=== PATIENT | male | born 1950 | race Caucasian/White ===

== ENCOUNTER → 2022-05-24 15:17 | Outpatient (BNVA) | payer MEDICARE, SELFPAY | PROVIDERS: PCP Family Medicine; Visit Provider Urology | DX: N20.0 Calculus of kidney (principal); N40.1 Benign prostatic hyperplasia with lower urinary tract symptoms; N13.8 Other obstructive and reflux uropathy; N32.0 Bladder-neck obstruction; R35.1 Nocturia | CPT/HCPCS: 99212 ==

== ENCOUNTER → 2022-08-02 15:30 | Outpatient (BNVA) | payer MEDICARE, SELFPAY | PROVIDERS: PCP Family Medicine; Visit Provider Urology | DX: N32.0 Bladder-neck obstruction (principal); N20.0 Calculus of kidney | CPT/HCPCS: Q3014 ==

== ENCOUNTER 2023-07-11 15:28 | Outpatient (AMB) | payer MEDICARE, SELFPAY ==
--- NOTE | 2023-07-11 15:34 | A.OFFVIS_ITS ---
Intake Intake Visit Reasons: 6m/PVR Intake Note: Patient is Present for Follow Up PVR Urology Medication: Tamsulosin, Doxazosin Antibiotic Allergies:None Blood Thinners:None [facility]: [facility] would like to have a hand prescription where he can use [facility] for better Jacob PVR: 0 HPI HPI Comments History of Present Illness Details Norberto is a very pleasant male. He is a patient of Dr Leon. He is seen for the following urologic conditions. - nephrolithiasis - lower urinary tract symptoms Retrial doxazosin Two month follow-up PVR Lower urinary tract symptoms Nocturia x2 Waking every 3-4 hours Nephrolithiasis/Urolithiasis:? Prior stones with interventions 2009, [address] Riley ?Here for review ?Discussed current findings and strategies for protection with increased fluids, vitamin B6 and low oxalate foods. ? They are here for?initial evaluation for nephrolithiasis.? They present for evaluation of? back pain none ? flank pain none ? abdominal pain ?none ? Urolithiasis was diagnosed?many years ago.? The patient previously had kidney stones whose composition w?2001 - , calcium oxalate - monohydrate 80%.? Laboratory investigations include?no recent labs.? Imaging - 10/12 CT scan 4 mm right stone, 1.5 cm right renal cyst, thickened bladder suggestive of BPH ? Prior treatment(s) include?Intervention.? Current therapeutic plan will be?to continue with imaging surveillance ?- offered vitamin B6 and dietary advice, General advice to maintain good fluid intake for urine greater than 1.5 L per day, reduce salt and reduce protein and acid loads was provided Review of Systems Const Denies chills and Denies fever(s) Card Reports no additional complaints and Denies syncope Resp Denies cough GI Denies abdominal pain and Denies heartburn Reports as per HPI and Denies change in libido Neuro Denies syncope Psych Denies change in libido Endo Denies change in libido Physical Exam Const General: cooperative, healthy appearing, comfortable and no acute distress Orientation/consciousness: patient oriented x3 HEENT Face and sinus: Yes normal facial exam Mouth: moist mucous membranes Neck Neck: Yes normal visual inspection, Yes full ROM and Yes trachea midline Chest Chest palpation & inspection: normal inspection of the chest Resp Effort & Inspection: normal respiratory effort, able to speak in complete sentences and no respiratory distress GI Inspection: Yes normal to inspection Back/Spine/Pelvis Cervical Spine: normal cervical lordosis Thoracic/Lumbar Spine: thoracic and lumbar spine normal to inspection Skin General skin exam: no rashes or lesions noted Neuro General: patient oriented x3, gait normal, tone normal and moves all extremities Extrem General: Yes normal to inspection and Yes capillary refill normal Office Procedures Post Void Residual Post Residual Void Post Void Residual (PVR): 0 [id number] Void Residual by ultrasound Results AMB Urinalysis, Automated UA Leukoctes 0 Veronika/uL Last Edit by Bibi Oates [facility] on 07/11/23 15:47 UA Nitrite Negative Last Edit by Bibi Oates [facility] on 07/11/23 15:47 UA Urobilinogen 0.2 mg/dL Last Edit by Bibi Oates [facility] on 07/11/23 15:4 7 UA Protein 0 mg/dL Last Edit by Bibi Oates [facility] on 07/11/23 15:47 UA pH 6.0 Last Edit by Bibi Oates [facility] on 07/11/23 15:47 UA Blood 0 Geoff/uL Last Edit by Bibi Oates [facility] on 07/11/23 15:47 UA Specific [place] 1.020 Last Edit by Bibi Oates [facility] on 07/11/23 15: 47 UA Ketone Negative Last Edit by Bibi Oates [facility] on 07/11/23 15:47 UA Bilirubin 0 mg/dL Last Edit by Bibi Oates [facility] on 07/11/23 15:47 UA Glucose 0 mg/dL Last Edit by Bibi Oates [facility] on 07/11/23 15:47 Results Reviewed Results Reviewed: Laboratory Last Values Urine pH (Auto) 6.0 07/11/23 15:35 Specific [place] (Auto) 1.020 07/11/23 15:35 Urine Protein (Auto) 0 mg/dL 07/11/23 15:35 Glucose (UA)(Auto) 0 mg/dL 07/11/23 15:35 Urine Ketones (Auto) Negative 07/11/23 15:35 Urine Blood (Auto) 0 Geoff/uL 07/11/23 15:35 Urine Nitrite (Auto) Negative 07/11/23 15:35 Urine Bilirubin (Auto) 0 mg/dL 07/11/23 15:35 Urine Urobilinogen (Auto) 0.2 mg/dL 07/11/23 15:35 Leukocyte Esterase (Auto) 0 Veronika/uL 07/11/23 15:35 Assessment & Plan Assessment & Plan (1) Nephrolithiasis: Code(s): N20.0 - Calculus of kidney (2) Bladder outlet obstruction: Code(s): N32.0 - Bladder-neck obstruction Plan Return doxazosin 4 mg Orders: Orders AMB Urinalysis Automated 07/11/23 Z13.9 - Encounter for screening, unspecified AMB Post Void Residual by ultrasound 07/11/23 N32.0 - Bladder-neck obstruction Medications: Changed From doxazosin 4 mg PO BEDTIME 90 days 90 tabs 1RF N32.0 - Bladder-neck obstruction To doxazosin 4 mg PO BEDTIME 30 tabs 1RF 30 days N32.0 - Bladder-neck obstruction Patient Instructions: Imaging studies, laboratory and physical exam results were discussed and reviewed in detail. No major barriers to patient understanding were identified. An opportunity to ask questions regarding the treatment plan was provided. All questions were answered. The patient expressed understanding and agreement with the above treatment plan. The patient is aware they should contact our office by phone for worsening of th eir current condition or the appearance of new urologic symptoms. Compliance is encouraged with any medications and followup testing that is ordered. It is a privilege to participate in the urologic care of your patient. If you have any questions or concerns regarding treatment for the above conditions, or other urologic issues, please do not hesitate to contact me. The office telephone contact is [phone]. This note is constructed using voice recognition software. While every effort has been made to ensure accuracy semiconductor assembler errors may have been included. Yours sincerely, Dr Mj Watkins MD, [facility] - Urology Providers of Expert, Compassionate Care for the Genitourinary System Coding Level of Care Code Est Pt Level 4 (64609) Diagnoses Nephrolithiasis N20.0 Bladder outlet obstruction N32.0 CPT Codes Post Residual Void - PVR CPT Code: 68593-Pemp Void Residual by ultrasound ([id number])
== END 2023-07-11 16:33 | disposition home or self-care (01) ==
PROVIDERS: PCP Family Medicine; Visit Provider Urology
DX: N20.0 Calculus of kidney (principal); N32.0 Bladder-neck obstruction
CPT/HCPCS: 99213

== ENCOUNTER → 2023-07-11 15:28 | Outpatient (BNVA) | payer MEDICARE, SELFPAY | PROVIDERS: PCP Family Medicine; Visit Provider Urology | DX: N32.0 Bladder-neck obstruction (principal) | CPT/HCPCS: 51798; 81003; 99212 ==

== ENCOUNTER 2023-09-09 14:57 | Outpatient (AMB) | payer MEDICARE, SELFPAY ==
--- NOTE | 2023-09-09 15:12 | A.OFFVIS_ITS ---
Intake Intake Visit Reasons: 2m/PVR Intake Note: Patient is Present for Follow Up Urology Medication: Doxazosin, Tamsulosin Antibiotic Allergies:None Blood Thinners:None PVR: 0 Compliants: Medication List - Last Reconciled 09/09/23 by Mj Watkins MD doxazosin 4 mg PO BEDTIME 90 days lisinopril-hydrochlorothiazide 20-25 mg 1 tab PO DAILY rosuvastatin 40 mg PO BEDTIME tamsulosin 0.4 mg PO BEDTIME 30 days HPI HPI Comments History of Present Illness Details Norberto is a very pleasant male. He is a patient of Dr Leon. He is seen for the following urologic conditions. - nephrolithiasis - lower urinary tract symptoms Follow-up doxazosin 4mg PVR 0cc Would like to continue Will trial coming off to see if it has been helpful Four month follow-up Lower urinary tract symptoms Nocturia x2 Waking every 3-4 hours Nephrolithiasis/Urolithiasis:? Prior stones with interventions 2009, [address] Riley ?Here for review ?Discussed current findings and strategies for protection with increased fluids, vitamin B6 and low oxalate foods. ? They are here for?initial evaluation for nephrolithiasis.? They present for evaluation of? back pain none ? flank pain none ? abdominal pain ?none ? Urolithiasis was diagnosed?many years ago.? The patient previously had kidney stones whose composition w?2001 - , calcium oxalate - monohydrate 80%.? Laboratory investigations include?no recent labs.? Imaging - 10/12 CT scan 4 mm right stone, 1.5 cm right renal cyst, thickened bladder suggestive of BPH ? Prior treatment(s) include?Intervention.? Current therapeutic plan will be?to continue with imaging surveillance ?- offered vitamin B6 and dietary advice, General advice to maintain good fluid intake for urine greater than 1.5 L per day, reduce salt and reduce protein and acid loads was provided Review of Systems Const Denies chills and Denies fever(s) Card Reports no additional complaints and Denies syncope Resp Denies cough GI Denies abdominal pain and Denies heartburn Reports as per HPI and Denies change in libido Neuro Denies syncope Psych Denies change in libido Endo Denies change in libido Physical Exam Const General: cooperative, healthy appearing, comfortable and no acute distress Orientation/consciousness: patient oriented x3 HEENT Face and sinus: Yes normal facial exam Mouth: moist mucous membranes Neck Neck: Yes normal visual inspection, Yes full ROM and Yes trachea midline Chest Chest palpation & inspection: normal inspection of the chest Resp Effort & Inspection: normal respiratory effort, able to speak in complete sentences and no respiratory distress GI Inspection: Yes normal to inspection Back/Spine/Pelvis Cervical Spine: normal cervical lordosis Thoracic/Lumbar Spine: thoracic and lumbar spine normal to inspection Skin General skin exam: no rashes or lesions noted Neuro General: patient oriented x3, gait normal, tone normal and moves all extremities Extrem General: Yes normal to inspection and Yes capillary refill normal Office Procedures Post Void Residual Post Residual Void Post Void Residual (PVR): 0 [id number]-Kqlq Void Residual by ultrasound Assessment & Plan Assessment & Plan (1) Nephrolithiasis: Code(s): N20.0 - Calculus of kidney (2) Bladder outlet obstruction: Code(s): N32.0 - Bladder-neck obstruction Plan Six month follow-up Orders: Orders AMB Post Void Residual by ultrasound Today N32.0 - Bladder-neck obstruction Medications: Changed From doxazosin 4 mg PO BEDTIME 30 days 30 tabs 1RF N32.0 - Bladder-neck obstruction To doxazosin 4 mg PO BEDTIME 90 days 90 tabs 1RF N32.0 - Bladder-neck obstruction Patient Instructions: Imaging studies, laboratory and physical exam results were discussed and reviewed in detail. No major barriers to patient understanding were identified. An opportunity to ask questions regarding the treatment plan was provided. All questions were answered. The patient expressed understanding and agreement with the above treatment plan. The patient is aware they should contact our office by phone for worsening of their current condition or the appearance of new urologic symptoms. Compliance is encouraged with any medications and followup testing that is ordered. It is a privilege to participate in the urologic care of your patient. If you have any questions or concerns regarding treatment for the above conditions, or other urologic issues, please do not hesitate to contact me. The office telephone contact is [phone]. This note is constructed using voice recognition software. While every effort has been made to ensure accuracy post anesthesia care unit nurse errors may have been included. Yours sincerely, Dr Mj Watkins MD, [facility] - Urology Providers of Expert, Compassionate Care for the Genitourinary System Coding Level of Care Code Est Pt Level 3 (83865) Diagnoses Nephrolithiasis N20.0 Bladder outlet obstruction N32.0 CPT Codes Post Residual Void - PVR CPT Code: 67762-Onch Void Residual by ultrasound ([id number])
== END 2023-09-09 15:46 | disposition home or self-care (01) ==
PROVIDERS: PCP Family Medicine; Visit Provider Urology
DX: N20.0 Calculus of kidney (principal); N32.0 Bladder-neck obstruction
CPT/HCPCS: 99213

== ENCOUNTER → 2023-09-09 14:57 | Outpatient (BNVA) | payer MEDICARE, SELFPAY | PROVIDERS: PCP Family Medicine; Visit Provider Urology | DX: N20.0 Calculus of kidney (principal); N32.0 Bladder-neck obstruction | CPT/HCPCS: 51798; 99212 ==

== ENCOUNTER 2024-03-10 15:42 | Outpatient (AMB) | payer MEDICARE, SELFPAY ==
--- NOTE | 2024-03-10 15:43 | A.OFFVIS_ITS ---
Intake Visit Reasons: 6m follow up Intake Note: Patient is Present for Telephone Follow Up For Urology Med: Doxazosin,Tamsulosin Antibiotic Allergy: None Blood Thinner:None HPI Comments Details: Norberto is a very pleasant male. He is a patient of Dr Leon. He is seen for the following urologic conditions. - nephrolithiasis - lower urinary tract symptoms Telemedicine Evaluation 15 min Consultation [employer] Dorian Video Follow-up doxazosin 4mg Continues to be happy with doxazosin Six month follow-up PSA not performed recently Lower urinary tract symptoms Nocturia x2 Waking every 3-4 hours Nephrolithiasis/Urolithiasis:? Prior stones with interventions 2009, [address] Riley ?Here for review ?Discussed current findings and strategies for protection with increased fluids, vitamin B6 and low oxalate foods. ? They are here for?followup evaluation for nephrolithiasis.? Urolithiasis was diagnosed?many years ago.? The patient previously had kidney stones whose composition w?2001 - , calcium oxalate - monohydrate 80%.? Laboratory investigations include?no recent labs.? Imaging - 10/12 CT scan 4 mm right stone, 1.5 cm right renal cyst, thickened bladder suggestive of BPH ? Prior treatment(s) include?Intervention.? Current therapeutic plan will be?to continue with imaging surveillance ?- offered vitamin B6 and dietary advice, General advice to maintain good fluid intake for urine greater than 1.5 L per day, reduce salt and reduce protein and acid loads was provided Telehealth Telehealth Telehealth Platform: [employer] Location of provider rendering services: practice address Location of patient: address on file Patient Identification confirmed using: Name, : Yes Telehealth method: video Patient verbally consented to treatment: Yes Patient verbally consented to billing insurance company: Yes Patient informed of any privacy concerns related to visit: Yes Minutes spent on Phone/Video with Pt.: 15 Assessment & Plan Assessment & Plan (1) Bladder outlet obstruction: Code(s): N32.0 - Bladder-neck obstruction Category: Medical (2) Nephrolithiasis: Code(s): N20.0 - Calculus of kidney Category: Medical Plan Continue doxazosin Orders: Orders Prostate Specific Antigen 6 Months N32.0 - Bladder-neck obstruction Medications: Refilled doxazosin 4 mg PO BEDTIME 90 days 90 tabs 1RF N32.0 - Bladder-neck obstruction Patient Instructions: Imaging studies, laboratory and physical exam results were discussed and reviewed in detail. No major barriers to patient understanding were identified. An opportunity to ask questions regarding the treatment plan was provided. All questions were answered. The patient expressed understanding and agreement with the above treatment plan. The patient is aware they should contact our office by phone for worsening of their current condition or the appearance of new urologic symptoms. Compliance is encouraged with any medications and followup testing that is ordered. It is a privilege to participate in the urologic care of your patient. If you have any questions or concerns regarding treatment for the above conditions, or other urologic issues, please do not hesitate to contact me. The office telephone contact is [phone]. This note is constructed using voice recognition software. While every effort has been made to ensure accuracy television operator errors may have been included. Yours sincerely, Dr Mj Watkins MD, [facility] - Urology Providers of Expert, Compassionate Care for the Genitourinary System Coding Level of Care Code Tele Est Pt Level 3 (24975) Diagnoses Bladder outlet obstruction N32.0 Nephrolithiasis N20.0
== END 2024-03-10 16:18 | disposition home or self-care (01) ==
LOC: HO.HUSH 15:42
PROVIDERS: PCP Family Medicine; Visit Provider Urology
DX: N32.0 Bladder-neck obstruction (principal); N20.0 Calculus of kidney
CPT/HCPCS: 99213

== ENCOUNTER → 2024-03-10 15:42 | Outpatient (BNVA) | payer MEDICARE, SELFPAY | PROVIDERS: PCP Family Medicine; Visit Provider Urology ==

== ENCOUNTER 2024-10-08 15:23 | Outpatient (AMB) | payer MEDICARE, SELFPAY ==
--- NOTE | 2024-10-08 15:25 | MHC.OFFVIS ---
Intake Visit Reasons: 6M PVR/PSA(set) Intake Note: Patient is present for 6M PVR/PSA Urology Medication:DOXAZOSIN Antibiotic Allergy:NONE Blood Thinner:NONE Todays PVR:0ML'S Training And Development Assistant Required: No Allergies No Known Allergies Allergy (Verified 10/08/24 15:26) HPI Comments Details: Norberto is a very pleasant male. He is a patient of Dr Leon. He is seen for the following urologic conditions. - nephrolithiasis - lower urinary tract symptoms Follow-up doxazosin 4mg Continues to be happy with doxazosin Twelve month follow-up PSA remains well controlled 10/16 2.0 Lower urinary tract symptoms Nocturia x2 Waking every 3-4 hours Nephrolithiasis/Urolithiasis:? Prior stones with interventions 2009, [address] Rilye ?Here for review ?Discussed current findings and strategies for protection with increased fluids, vitamin B6 and low oxalate foods. ? They are here for?followup evaluation for nephrolithiasis.? Urolithiasis was diagnosed?many years ago.? The patient previously had kidney stones whose composition w?2001 - , calcium oxalate - monohydrate 80%.? Laboratory investigations include?no recent labs.? Imaging - 10/12 CT scan 4 mm right stone, 1.5 cm right renal cyst, thickened bladder suggestive of BPH ? Prior treatment(s) include?Intervention.? Current therapeutic plan will be?to continue with imaging surveillance ?- offered vitamin B6 and dietary advice, General advice to maintain good fluid intake for urine greater than 1.5 L per day, reduce salt and reduce protein and acid loads was provided Review of Systems Const Denies chills and Denies fever(s) Card Reports no additional complaints and Denies syncope Resp Denies cough GI Denies abdominal pain and Denies heartburn Reports as per HPI and Denies change in libido Neuro Denies syncope Psych Denies change in libido Endo Denies change in libido Physical Exam Const General: cooperative, healthy appearing, comfortable and no acute distress Orientation/consciousness: patient oriented x3 HEENT Face and sinus: Yes normal facial exam Mouth: moist mucous membranes Neck Neck: Yes normal visual inspection, Yes full ROM and Yes trachea midline Chest Chest palpation & inspection: normal inspection of the chest Resp Effort & Inspection: normal respiratory effort, able to speak in complete sentences and no respiratory distress GI Inspection: Yes normal to inspection Back/Spine/Pelvis Cervical Spine: normal cervical lordosis Thoracic/Lumbar Spine: thoracic and lumbar spine normal to inspection Skin General skin exam: no rashes or lesions noted Neuro General: patient oriented x3, gait normal, tone normal and moves all extremities Extrem General: Yes normal to inspection and Yes capillary refill normal Office Procedures Post Void Residual Post Residual Void Post Void Residual (PVR): 0 [id number] Void Residual by ultrasound Results AMB Urinalysis, Automated UA Leukoctes 0 Veronika/uL Last Edit by ANT Blackwood on 10/08/24 15:44 UA Nitrite Negative Last Edit by Drake Tafoya CCM on 10/08/24 15:44 UA Urobilinogen 0.2 mg/dL Last Edit by Drake Tafoya CCM on 10/08/24 15:44 UA Protein 0 mg/dL Last Edit by Drake Tafoya [facility] on 10/08/24 15:44 UA pH 6.0 Last Edit by Drake Tafoya CCM on 10/08/24 15:44 UA Blood 0 Geoff/uL Last Edit by Drake Tafoya CCM on 10/08/24 15:44 UA Specific [place] 1.015 Last Edit by Drake Tafoya CCM on 10/08/24 15:44 UA Ketone Negative Last Edit by Drake Tafoya CCM on 10/08/24 15:44 UA Bilirubin 0 mg/dL Last Edit by Drake Tafoya [facility] on 10/08/24 15:44 UA Glucose 0 mg/dL Last Edit by Drake Tafoya [facility] on 10/08/24 15:44 Results Reviewed Results Reviewed: Laboratory Last Values Urine pH (Auto) 6.0 10/08/24 15:43 Specific [place] (Auto) 1.015 10/08/24 15:43 Urine Protein (Auto) 0 mg/dL 10/08/24 15:43 Glucose (UA)(Auto) 0 mg/dL 10/08/24 15:43 Urine Ketones (Auto) Negative 10/08/24 15:43 Urine Blood (Auto) 0 Geoff/uL 10/08/24 15:43 Urine Nitrite (Auto) Negative 10/08/24 15:43 Urine Bilirubin (Auto) 0 mg/dL 10/08/24 15:43 Urine Urobilinogen (Auto) 0.2 mg/dL 10/08/24 15:43 Leukocyte Esterase (Auto) 0 Veronika/uL 10/08/24 15:43 Assessment & Plan Assessment & Plan (1) Nephrolithiasis: Code(s): N20.0 - Calculus of kidney Category: Medical (2) Bladder outlet obstruction: Code(s): N32.0 - Bladder-neck obstruction Category: Medical Plan Twelve month follow-up Orders: Orders Prostate Specific Antigen 364 Days N32.0 - Bladder-neck obstruction AMB Urinalysis Automated Today Z13.9 - Encounter for screening, unspecified Patient Instructions: Imaging studies, laboratory and physical exam results were discussed and reviewed in detail. No major barriers to patient understanding were identified. An opportunity to ask questions regarding the treatment plan was provided. All questions were answered. The patient expressed understanding and agreement with the above treatment plan. The patient is aware they should contact our office by phone for worsening of their current condition or the appearance of new urologic symptoms. Compliance is encouraged with any medications and followup testing that is ordered. It is a privilege to participate in the urologic care of your patient. If you have any questions or concerns regarding treatment for the above conditions, or other urologic issues, please do not hesitate to contact me. The office telephone contact is [phone]. This note is constructed using voice recognition software. While every effort has been made to ensure accuracy clinical review specialist errors may have been included. Yours sincerely, Dr Mj Watkins MD, [facility] - Urology Providers of Expert, Compassionate Care for the Genitourinary System Coding Level of Care Code Est Pt Level 3 (52548) Diagnoses Nephrolithiasis N20.0 Bladder outlet obstruction N32.0 CPT Codes Post Residual Void - PVR CPT Code: 57159-Djpw Void Residual by ultrasound ([id number])
== END 2024-10-08 16:30 | disposition home or self-care (01) ==
PROVIDERS: PCP Family Medicine; Visit Provider Urology
DX: N20.0 Calculus of kidney (principal); N32.0 Bladder-neck obstruction; Z13.9 Encounter for screening, unspecified
CPT/HCPCS: 99213

== ENCOUNTER → 2024-10-08 15:23 | Outpatient (BNVA) | payer MEDICARE, SELFPAY | PROVIDERS: PCP Family Medicine; Visit Provider Urology | DX: N20.0 Calculus of kidney (principal); N32.0 Bladder-neck obstruction | CPT/HCPCS: 51798; 81003; 99212 ==